=== PATIENT | female | born 1995 | race Caucasian/White ===

== ENCOUNTER → 2016-02-18 | Outpatient (CLI) | payer BC ==
[~2016-02-18] MED LIST: ACET-1256 PO; ACET-749 PO; CIPR-255 PO; IBUP-1050 PO; IBUP-1459 PO; TRIM100T20 PO
== END | disposition home or self-care (01) ==
LOC: C.LABSPEC 16:52
PROVIDERS: ATTEND Urology
DX: N39.0 Urinary tract infection, site not specified (principal)

== ENCOUNTER → 2016-04-28 | Outpatient (CLI) | payer BC, OTHER ==
--- NOTE | 2016-04-28 14:06 | DIAGNOSTIC IMAGING REPORT ---
ADDENDUM Addendum: 14 fluoroscopic spot images were acquired. Imaging was performed before, during, and after voiding. There is grade 1 vesicoureteral reflux on the right. No reflux was visualized on the left. The bladder is mildly trabeculated. There is a minimal post void residual. IMPRESSION: Grade 1 vesicoureteral reflux on the right Electronically signed by: Ted Howell M.D. 05/14/2016 2:27 PM Dictated Date/Time: 05/14/2016 2:25 PM ORIGINAL REPORT VOIDING CYSTOURETHROGRAM CLINICAL HISTORY: Recurrent urinary tract infections COMPARISON STUDY: CT scan dated 08/02/2015 FLUOROSCOPY TIME: 1.7 minutes. FINDINGS: The patient was catheterized by the radiology nurse. 250 cc of Cysto-Conray was instilled into the bladder under gravity. There is grade 1 vesicoureteral reflux on the right. No reflux was visualized in the left. The bladder is mildly trabeculated. IMPRESSION: Grade 1 vesicoureteral reflux on the right. Electronically signed by: Ted Howell M.D. 04/28/2016 2:05 PM Dictated Date/Time: 04/28/2016 2:03 PM
== END | disposition home or self-care (01) ==
LOC: C.RAD 13:18
PROVIDERS: ATTEND Urology
DX: N39.0 Urinary tract infection, site not specified (principal); N13.70 Vesicoureteral-reflux, unspecified

== ENCOUNTER → 2016-04-29 | Outpatient (CLI) | payer BC | END | disposition home or self-care (01) | LOC: C.LABSPEC 17:10 | PROVIDERS: ATTEND Urology | DX: N39.0 Urinary tract infection, site not specified (principal) ==

== ENCOUNTER → 2016-06-03 | Outpatient (CLI) | payer BC ==
[~2016-06-03] MED LIST changes: +TRIM100T PO; -TRIM100T20 PO
== END | disposition home or self-care (01) ==
LOC: C.LABSPEC 16:58
PROVIDERS: ATTEND Urology
DX: N39.0 Urinary tract infection, site not specified (principal); N13.70 Vesicoureteral-reflux, unspecified

== ENCOUNTER → 2016-06-09 | Day surgery (SDC) | payer BC ==
[2016-06-03 13:42] VITALS: BMI 21.0
[~2016-06-09] VITALS: Ht 162.6 cm; Wt 57.7 kg
[~2016-06-09] MED LIST changes: +ATROPINE SULFATE 0.1 MG/ML 5ML SYR IV PRN; +CIPROFLOXACIN / D5W 400 MG IV SCH; +CONRAY 30% 150ML BOTTLE ONE; +EpHEDrine SULFATE INJ 50 MG/ML AMP IV PRN; +FENTANYL CITRATE INJ 50 MCG/1 ML 2 ML VIAL IV PRN; +FENTANYL CITRATE INJ 50 MCG/1 ML 2 ML VIAL ONE; +KETOROLAC TROMETHAMINE 30 MG/ML VIAL ONE; +LACTATED RINGER'S 1000ML 1,000 ML IV SCH; +LIDOCAINE HCL 2% 2 ML VIAL (20MG/ML) ONE; +MIDAZOLAM HCL 1 MG/ML 2ML VIAL ONE; +ONDANSETRON INJ 2 MG/ML 2 ML VIAL IV PRN; +ONDANSETRON INJ 2 MG/ML 2 ML VIAL ONE; +OXYCODONE/ACETAMINOPHEN 5-325 TAB PO PRN; +PROMETHAZINE HCL INJ 6.25 MG in SODIUM CHLORIDE 0.9% 50ML 50 ML IV PRN; +PROPOFOL IV EMULSION 10 MG/ML 20 ML VIAL IV ONE; +SODIUM CHLORIDE 0.9% 1000ML 1,000 ML IV SCH
[2016-06-09 12:08] VITALS: BP 91/55; PULSE 61; TEMP 36.8; O2SAT 97; Ht 162.6 cm; Wt 57.7 kg
--- NOTE | 2016-06-09 13:51 | History & Physical Bridge Note ---
H&P Re-Evaluation Bridge Note: I have examined the patient, reviewed the History & Physical and in the interval since the performance of the History & Physical I have noted the following changes of clinical significance: No changes noted
--- NOTE | 2016-06-09 14:49 | [facility] Post Operative Brief Note ---
Immediate Operative Summary Operative Date June 09, 2016. Pre-Operative Diagnosis Vesicoureteral-reflux recurrent uti Post-Operative Diagnosis Vesicoureteral-reflux recurrent uti Procedure(s) Performed Coaptite injection at [facility] Surgeon Dr. 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
--- NOTE | 2016-06-09 14:52 | Discharge Instructions ---
Discharge Instructions Date of Service June 09, 2016. Admission Reason for Admission: Vesicoureteral Reflux, Recurrent Uti Discharge Discharge Diagnosis / Problem: VUR Discharge Goals Goal(s): Improve function, Increase independence, Improve disease control, Prevent Disease Progression Activity Recommendations Activity Limitations: resume your previous activity Lifting Limitations: none Exercise/Sports Limitations: none May Resume Sexual Activity: when tolerated Shower/Bathe: no limitations Driving or Machine Use: no limitations (as long as you are off of pain medications) . Discharge Diet Recommended Diet: Regular Diet Procedures Procedures Performed: Coaptite injection at [facility] Pending Studies Studies pending at discharge: no Medical Emergencies . Who to Call and When: Medical Emergencies: If at any time you feel your situation is an emergency, please call 911 immediately. . Non-Emergent Contact Non-Emergency issues call your: Urologist Call Non-Emergent contact if: you have a fever, temperature is above 101.5, your pain is not controlled, your pain is worsening . . "Provider Documentation" section prepared by Adolfo Moody. . VTE Core Measure Inpt VTE Proph given/why not?: Treatment not indicated
--- NOTE | 2016-06-09 15:21 | Anesthesiology Progress Note ---
Anesthesia Post Op Note Date & Time June 09, 2016 at 15:20 Vital Signs Pain Intensity: 0 Vital Signs Past 12 Hours Date Time Temp Pulse Resp B/P Pulse Ox O2 Delivery O2 Flow Rate FiO2 06/09/16 15:10 37 58 16 103/48 97 Room Air 06/09/16 15:00 69 16 100/50 99 Room Air 06/09/16 14:53 36.5 76 16 107/65 98 Room Air 06/09/16 12:08 36.8 61 20 91/55 97 Room Air Notes Mental Status: alert / awake / arousable, participated in evaluation Pt Amnestic to Procedure: Yes Nausea / Vomiting: adequately controlled Pain: adequately controlled Airway Patency, RR, SpO2: stable & adequate BP & HR: stable & adequate Hydration State: stable & adequate Anesthetic Complications: no major complications apparent
[2016-06-09 15:25] VITALS: BP 90/55; PULSE 61; TEMP 36.8; O2SAT 98
--- NOTE | 2016-06-09 15:32 | OPERATIVE REPORT ---
DATE OF OPERATION: 06/09/2016 PREOPERATIVE DIAGNOSIS: Vesicoureteral reflux. POSTOPERATIVE DIAGNOSIS: Vesicoureteral reflux. PROCEDURE PERFORMED: Cystoscopy, injection of collagen under the right ureterovesical junction and ureteral orifice. SURGEON: Dr. Bernard Santacruz. ANESTHESIA: General. ESTIMATED BLOOD LOSS: 0. URINE OUTPUT: Not recorded. SPECIMENS: There were no specimens. COMPLICATIONS: There were no complications. DRAINS: There were no drains. DESCRIPTION OF THE PROCEDURE: Zoey Vicente was identified in the preoperative holding area. Appropriate informed consents were reviewed and completed and the patient was transported to the operating suite. Upon arrival, she received appropriate preoperative antibiotics in the form of ciprofloxacin. Adequate sedation was achieved and she was placed in dorsal lithotomy where she was sterilely prepped and draped in standard fashion. I began the case by gently inserting an injection scope with obturator concluded. I then withdrew the obturator and passed a 30 degree lens. Full cystoscopy was carried out identifying the ureteral orifices in orthotopic position. She had moderate amounts of squamous metaplasia, no evidence of any tumors or other abnormalities within the bladder. 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 Following my full inspection, I turned my attention to the right ureteral orifice. Utilizing and injecting scope and an injection needle, I gently injected approximately 1-3 mL of Coaptite product underneath the UVJ. This converted to an open appearing woman into essentially a semi-lunar appearing UPJ. Care was used not to over distend this area or obstruct the ureter. Following my injection and appropriate appearance of the UPJ I withdrew the scope and I passed a 16 Amharic Carlos catheter. I then filled the bladder to 500 mL of water and saw no evidence of vesicoureteral reflux. I emptied the bladder completely and again saw no evidence of reflux. At that time, I concluded the case. The patient was reversed from anesthesia and taken to the PACU in stable condition. I attest to the content of the Intraoperative Record and any orders documented therein. Any exceptio ns are noted below.
[2016-06-09 15:55] VITALS: BP 101/55; PULSE 58; TEMP 36.8; O2SAT 98
== END | disposition home or self-care (01) ==
LOC: C.ACU 11:42
PROVIDERS: ATTEND Urology
DX: N13.70 Vesicoureteral-reflux, unspecified (principal); N39.0 Urinary tract infection, site not specified; Z87.440 Personal history of urinary (tract) infections; Z80.8 Family history of malignant neoplasm of other organs or systems; Z82.49 Family history of ischemic heart disease and other diseases of the circulatory system; Z80.1 Family history of malignant neoplasm of trachea, bronchus and lung